=== PATIENT | female | born 1950 | race Hispanic/Latino ===

== ENCOUNTER 2020-09-20 07:55 | Emergency (ER) | payer OTHER ==
[~2020-09-20] VITALS: Ht 157.5 cm; Wt 73.0 kg
[2020-09-20 08:25] VITALS: BP 130/72
== END 2020-09-20 08:54 | disposition home or self-care (01) ==
LOC: EDH 07:55
DX: H11.32 Conjunctival hemorrhage, left eye (principal); E78.5 Hyperlipidemia, unspecified
CPT/HCPCS: 99281

== ENCOUNTER 2023-12-27 10:14 | Emergency (ER) | payer OTHER ==
[~2023-12-27] VITALS: Ht 157.5 cm; Wt 62.8 kg
[2023-12-27 10:17] VITALS: TEMP 98.3
[2023-12-27] MEDS: ALBUTEROL 0.083% 2.5 MG/3 ML INH IH ONE (10:36)
[2023-12-27 10:40] VITALS: PULSE 60; RESP 20
[2023-12-27 10:51] LABS: BASOPHILS # (AUTO) 0.01 K/uL (0.00-0.20); BASOPHILS % (AUTO) 0.2 % (0.0-5.0); EOSINOPHILS # (AUTO) 0.01 K/uL (0.00-0.70); EOSINOPHILS % (AUTO) 0.2 % (0.0-8.0); HEMATOCRIT 36.2 % (36-48); IMMATURE GRANULOCYTE ABSOLUTE 0.01 K/uL (0-1); LYMPHOCYTES # (AUTO) 1.6 K/uL (1.0-4.8); LYMPHOCYTES % (AUTO) 32.5 % (21.0-51.0); MEAN CORPUSCULAR HEMOGLOBIN 31.5 pg (27.0-33.0); MEAN CORPUSCULAR HGB CONC 33.7 g/dL (32.0-36.0); MEAN CORPUSCULAR VOLUME 93.5 fL (79-99); MONOCYTES # (AUTO) 0.5 K/uL (0.1-1.0); MONOCYTES % (AUTO) 9.4 % (3.0-13.0); NEUTROPHILS # (AUTO) 2.7 K/uL (1.8-7.7); NEUTROPHILS % (AUTO) 57.5 % (40.0-77.0); PLATELET COUNT (AUTO) 243 K/uL (130-400); RED BLOOD CELL COUNT(AUTO) 3.87 MIL/uL (4.00-5.50); RED CELL DISTRIBUTION WIDTH 12.8 % (11.0-15.5); WHITE BLOOD COUNT (AUTO) 4.8 K/uL (4.8-10.8)
[2023-12-27 11:05] LABS: ALBUMIN 3.5 g/dL (3.5-5.0); BILIRUBIN,TOTAL 0.4 mg/dL (0.2-1.0); CREATININE 0.9 mg/dL (0.5-1.0)
[2023-12-27] MEDS ORDERED: ALBUHFA IH (12:37)
[2023-12-27] MEDS ORDERED: METH4TAB3 PO (12:37)
[2023-12-27 12:50] VITALS: BP 149/71; PULSE 78; RESP 18; O2SAT 96
== END 2023-12-27 12:44 | disposition home or self-care (01) ==
LOC: EDH 10:14
DX: J06.9 Acute upper respiratory infection, unspecified (principal); B97.89 Other viral agents as the cause of diseases classified elsewhere; R73.9 Hyperglycemia, unspecified; E78.00 Pure hypercholesterolemia, unspecified; Z20.822 Contact with and (suspected) exposure to COVID-19
CPT/HCPCS: 36415; 71045; 80053; 84484; 85025; 87426; 93005; 94640

== ENCOUNTER 2024-04-30 05:30 | Day surgery (SDC) | payer OTHER ==
[~2024-04-30] VITALS: Ht 160 cm; Wt 63.5 kg
[2024-04-30] VITALS (12 sets, daily range): BP systolic 107–140; BP diastolic 55–81; PULSE 61–73; RESP 15–20; TEMP 97.3–97.5
[~2024-04-30 05:30] MED LIST: CHOL100046 PO; LOVA40TA2 PO
[2024-04-30] MEDS: 0.9%NACL 1000ML 1,000 ML IV ONE (06:22)
[2024-04-30] MEDS ORDERED: LIDOCAINE HCL 1% 20 ML VIAL ONE (07:42)
[2024-04-30] MEDS ORDERED: proPOFol 10 MG/ML 20ML VIAL IV ONE (07:42)
== END 2024-04-30 09:00 | disposition home or self-care (01) ==
LOC: DAH 05:30 → ENDO 05:30
PROVIDERS: ATTEND Internal Medicine Gastroenterology
DX: Z12.11 Encounter for screening for malignant neoplasm of colon (principal); K57.30 Diverticulosis of large intestine without perforation or abscess without bleeding; E78.5 Hyperlipidemia, unspecified; Z79.899 Other long term (current) drug therapy
CPT/HCPCS: 45378; J7030; J2704; A4620; A4215; J3490